=== PATIENT | female | born 1955 | race Two or more races ===

== ENCOUNTER 2017-12-20 10:51 | Inpatient (IN) | payer OTHER, MEDICAID ==
[~2017-12-20] VITALS: Ht 152.4 cm; Wt 56.7 kg
[2017-12-20 14:33] LABS: BASOPHIL % 0.5 % (0-2); PLATELET COUNT 223 x10^3mcL (130-400)
[2017-12-20 14:47] LABS: CALCIUM 9.1 mg/dL (8.5-10.1); CARBON DIOXIDE 36.7 mmol/L (21-32); CHLORIDE SERUM 104 mmol/L (98-107); CREATININE SERUM 0.3 mg/dL (0.6-1.0); GFR1 > 60 mL/min; GLUCOSE SERUM 111 mg/dL (74-106); POTASSIUM SERUM 3.8 mmol/L (3.5-5.1); SODIUM SERUM 145 mmol/L (136-145)
[2017-12-20 14:52] LABS: ALKALINE PHOSPHATASE 151 U/L (46-116); ALT/SGPT 35 U/L (14-59); BILIRUBIN TOTAL 0.3 mg/dL (0.20-1.00)
[2017-12-20 14:55] LABS: ALBUMIN 2.6 g/dL (3.4-5.0)
[2017-12-20 15:09] LABS: AST/SGOT 25 U/L (15-37)
[2017-12-20] MEDS ORDERED: CLONAZEPAM0.5 MG PO (15:45)
[2017-12-20] MEDS ORDERED: MONTELUKAST SOD10 M1 GT (15:46)
[2017-12-20] MEDS ORDERED: LEVOTHYROXIN0.125 M2 GT (15:48)
[2017-12-20] MEDS ORDERED: VITAMIN C500 MG/5 M GT (15:49)
[2017-12-20] MEDS ORDERED: NATURE'S BLEND F1 MG GT (15:50)
[2017-12-20] MEDS ORDERED: CENTRUM CHEWAB1 EACH GT (15:50)
[2017-12-20] MEDS ORDERED: FISH OIL OMEGA1 EACH GT (15:51)
[2017-12-20] MEDS ORDERED: OMEPRAZOLE40 M1 GT (15:51)
[2017-12-20] MEDS ORDERED: KLO0.5 GT (15:52)
[2017-12-20] MEDS ORDERED: CALCIUM CARB500 M1 GT (15:53)
[2017-12-20] MEDS ORDERED: VITAMIN D3500 UNIT/5 GT (15:55)
[2017-12-20] MEDS ORDERED: BUDESONIDE0.5 MG/2 M NEB (15:56)
[2017-12-20] MEDS ORDERED: LAMICTAL200 MG GT (15:57)
[2017-12-20] MEDS ORDERED: [UNRECOGNIZED DRUG - OTHER] GT (15:58)
[2017-12-20] MEDS ORDERED: SENNA8.8 MG/5 M GT (16:01)
[2017-12-20] MEDS ORDERED: [UNRECOGNIZED DRUG - OTHER] GT (16:02)
[2017-12-20] MEDS ORDERED: MIRALAX17 GM/Dose PO (16:03)
[2017-12-20] MEDS ORDERED: KEPPRA1000 M1 GT (16:03)
[2017-12-20] MEDS ORDERED: PROBIOTIC1 EAC1 GT (16:04)
[2017-12-20] MEDS ORDERED: LIPI10 GT (16:05)
[2017-12-20] MEDS ORDERED: ATIVAN2 MG/ML IJ (16:07)
[2017-12-20 18:21] VITALS: BP 115/74
[2017-12-20 19:27] LABS: microscopic required? YES; urine erythrocyte 2+ (NEGATIVE)
[2017-12-20 21:45] VITALS: BP 133/57
[2017-12-21 04:45] VITALS: BP 134/60
[2017-12-21 09:35] VITALS: BP 129/58
[2017-12-21 14:12] VITALS: BP 130/66
[2017-12-21 15:43] LABS: BASOPHIL % 0.4 % (0-2); PLATELET COUNT 170 x10^3mcL (130-400)
[2017-12-21 15:45] LABS: RED CELL DISTRIBUTION WIDTH 16.5 % (11.5-14.5)
[2017-12-21 15:51] LABS: CALCIUM 8.5 mg/dL (8.5-10.1); CARBON DIOXIDE 28.9 mmol/L (21-32); CHLORIDE SERUM 106 mmol/L (98-107); CREATININE SERUM 0.3 mg/dL (0.6-1.0); GFR1 > 60 mL/min; GLUCOSE SERUM 125 mg/dL (74-106); POTASSIUM SERUM 4.3 mmol/L (3.5-5.1); SODIUM SERUM 141 mmol/L (136-145)
[2017-12-21 17:52] VITALS: BP 137/51
[2017-12-21 21:07] VITALS: BP 132/60
[2017-12-22 05:01] VITALS: BP 138/66
[2017-12-22 07:20] LABS: BASOPHIL % 0.4 % (0-2); PLATELET COUNT 152 x10^3mcL (130-400)
[2017-12-22 07:21] LABS: CALCIUM 8.5 mg/dL (8.5-10.1); CHLORIDE SERUM 106 mmol/L (98-107); CREATININE SERUM 0.3 mg/dL (0.6-1.0); GFR1 > 60 mL/min; GLUCOSE SERUM 90 mg/dL (74-106); MAGNESIUM 1.5 mg/dL (1.8-2.4); PHOSPHOROUS 3.3 mg/dL (2.5-4.9); POTASSIUM SERUM 4.5 mmol/L (3.5-5.1); SODIUM SERUM 140 mmol/L (136-145)
[2017-12-22 07:25] LABS: RED CELL DISTRIBUTION WIDTH 16.7 % (11.5-14.5)
[2017-12-22 09:33] VITALS: BP 132/63
[2017-12-22 14:01] VITALS: BP 150/71
[2017-12-22 18:07] VITALS: BP 144/69
[2017-12-22 21:16] VITALS: BP 148/63
[2017-12-23 05:39] VITALS: BP 142/59
[2017-12-23 06:25] LABS: PLATELET COUNT 155 x10^3mcL (130-400)
[2017-12-23 06:35] LABS: CARBON DIOXIDE 25.8 mmol/L (21-32); CHLORIDE SERUM 105 mmol/L (98-107); CREATININE SERUM 0.3 mg/dL (0.6-1.0); GFR1 > 60 mL/min; GLUCOSE SERUM 103 mg/dL (74-106); MAGNESIUM 1.6 mg/dL (1.8-2.4); POTASSIUM SERUM 4.7 mmol/L (3.5-5.1); SODIUM SERUM 137 mmol/L (136-145)
[2017-12-23 07:01] LABS: RED CELL DISTRIBUTION WIDTH 16.2 % (11.5-14.5)
[2017-12-23 09:37] VITALS: BP 164/68
[2017-12-23 12:35] LABS: MONOCYTE 2 % (0-7); SEGMENTED NEUTROPHILS 78 % (37-75)
[2017-12-23 12:38] LABS: PLATELET MORPHOLOGY PLATELETS NORMAL
[2017-12-23 12:39] LABS: rbc morphology (normal/abnorm) NORMAL (NORMAL)
[2017-12-23 13:20] VITALS: Ht 152.4 cm; Wt 56.7 kg
[2017-12-23 14:00] VITALS: BP 131/57
[2017-12-23 17:18] VITALS: BP 138/63
[2017-12-23 21:12] VITALS: BP 138/51
[2017-12-24 06:09] VITALS: BP 129/57
[2017-12-24 06:55] LABS: CALCIUM 8.6 mg/dL (8.5-10.1); CARBON DIOXIDE 26.7 mmol/L (21-32); CHLORIDE SERUM 100 mmol/L (98-107); CREATININE SERUM 0.4 mg/dL (0.6-1.0); GFR1 > 60 mL/min; GLUCOSE SERUM 176 mg/dL (74-106); MAGNESIUM 1.5 mg/dL (1.8-2.4); PHOSPHOROUS 2.9 mg/dL (2.5-4.9); POTASSIUM SERUM 4.9 mmol/L (3.5-5.1); SODIUM SERUM 135 mmol/L (136-145)
[2017-12-24 07:56] LABS: RED CELL DISTRIBUTION WIDTH 16.3 % (11.5-14.5)
[2017-12-24 07:57] LABS: BASOPHIL % 0 % (0-2); PLATELET COUNT 120 x10^3mcL (130-400)
[2017-12-24 08:58] VITALS: BP 152/71
[2017-12-24 13:02] VITALS: BP 170/53
[2017-12-24 17:30] VITALS: BP 148/67
[2017-12-24 21:27] VITALS: BP 147/76
[2017-12-25 05:43] VITALS: BP 177/78
[2017-12-25 06:22] VITALS: BP 148/82
[2017-12-25 06:57] LABS: BASOPHIL % 0 % (0-2); PLATELET COUNT 93 x10^3mcL (130-400); RED CELL DISTRIBUTION WIDTH 15.3 % (11.5-14.5)
[2017-12-25 07:02] LABS: CALCIUM 8.7 mg/dL (8.5-10.1); CARBON DIOXIDE 30.2 mmol/L (21-32); CHLORIDE SERUM 97 mmol/L (98-107); CREATININE SERUM 0.3 mg/dL (0.6-1.0); GFR1 > 60 mL/min; GLUCOSE SERUM 129 mg/dL (74-106); POTASSIUM SERUM 4.8 mmol/L (3.5-5.1); SODIUM SERUM 132 mmol/L (136-145)
[2017-12-25 09:51] VITALS: BP 158/68
[2017-12-25 14:34] VITALS: BP 161/51
[2017-12-25 18:13] VITALS: BP 148/79
[2017-12-25 21:45] VITALS: BP 176/84
[2017-12-26 01:17] VITALS: BP 149/68
[2017-12-26 05:42] VITALS: BP 152/74
[2017-12-26 06:32] LABS: BASOPHIL % 0 % (0-2); PLATELET COUNT 122 x10^3mcL (130-400); RED CELL DISTRIBUTION WIDTH 15.1 % (11.5-14.5)
[2017-12-26 06:59] LABS: CALCIUM 9.7 mg/dL (8.5-10.1); CARBON DIOXIDE 28.7 mmol/L (21-32); CHLORIDE SERUM 95 mmol/L (98-107); CREATININE SERUM 0.4 mg/dL (0.6-1.0); GFR1 > 60 mL/min; GLUCOSE SERUM 122 mg/dL (74-106); MAGNESIUM 1.3 mg/dL (1.8-2.4); POTASSIUM SERUM 4.3 mmol/L (3.5-5.1); SODIUM SERUM 131 mmol/L (136-145)
[2017-12-26 09:38] VITALS: BP 153/67
[2017-12-26 13:59] VITALS: BP 161/70
[2017-12-26 17:51] VITALS: BP 143/60
[2017-12-26 20:50] VITALS: BP 137/74
[2017-12-27 05:37] VITALS: BP 120/52
[2017-12-27 06:39] LABS: BASOPHIL % 0.2 % (0-2); PLATELET COUNT 185 x10^3mcL (130-400)
[2017-12-27 06:44] LABS: CALCIUM 9.3 mg/dL (8.5-10.1); CARBON DIOXIDE 29.7 mmol/L (21-32); CHLORIDE SERUM 100 mmol/L (98-107); CREATININE SERUM 0.4 mg/dL (0.6-1.0); GFR1 > 60 mL/min; GLUCOSE SERUM 109 mg/dL (74-106); SODIUM SERUM 134 mmol/L (136-145)
[2017-12-27 06:45] LABS: RED CELL DISTRIBUTION WIDTH 15.1 % (11.5-14.5)
[2017-12-27 10:14] VITALS: BP 117/61
[2017-12-27 13:04] VITALS: BP 122/63
[2017-12-27 13:22] VITALS: BP 129/52
== END 2017-12-27 14:14 | DRG 177 ==
LOC: ED 10:51 → DU 13:40
PROVIDERS: Emergency Medicine; Family Medicine; Internal Medicine; Internal Medicine Gastroenterology
PROC: 0D2DXUZ Change Feeding Device in Lower Intestinal Tract, External Approach (ICD-10-PCS; principal; 2017-12-26 09:30)
PROC: 0DCA8ZZ Extirpation of Matter from Jejunum, Via Natural or Artificial Opening Endoscopic (ICD-10-PCS; 2017-12-26 09:30)
DX: J69.0 Pneumonitis due to inhalation of food and vomit (principal); R53.2 Functional quadriplegia; J96.01 Acute respiratory failure with hypoxia; E44.0 Moderate protein-calorie malnutrition; N39.0 Urinary tract infection, site not specified; K94.13 Enterostomy malfunction; B96.5 Pseudomonas (aeruginosa) (mallei) (pseudomallei) as the cause of diseases classified elsewhere; R06.89 Other abnormalities of breathing; K31.84 Gastroparesis; D64.9 Anemia, unspecified; Z16.24 Resistance to multiple antibiotics; Z86.718 Personal history of other venous thrombosis and embolism; Y84.8 Other medical procedures as the cause of abnormal reaction of the patient, or of later complication, without mention of misadventure at the time of the procedure; Y73.2 Prosthetic and other implants, materials and accessory gastroenterology and urology devices associated with adverse incidents; Y92.092 Bedroom in other non-institutional residence as the place of occurrence of the external cause
CPT/HCPCS: 36600; 43235; 43760; J0132; J0770; J1200; J1610; J1650; J2250; J2270; J2310; J2543; J2765; J2920; J3010; J3475; J3490; J7030; J7620; J7626; Q0092

== ENCOUNTER 2018-03-15 20:18 | Inpatient (IN) | payer OTHER, MEDICAID ==
[~2018-03-15] VITALS: Ht 152.4 cm; Wt 43.1 kg
[~2018-03-15 20:18] MED LIST: ATIVAN2 MG/ML IJ; BUDESONIDE0.5 MG/2 M NEB; CALCIUM CARB500 M1 GT; CENTRUM CHEWAB1 EACH GT; CLONAZEPAM0.5 MG PO; FISH OIL OMEGA1 EACH GT; KEPPRA1000 M1 GT; KLO0.5 GT; LAMICTAL200 MG GT; LEVOTHYROXIN0.125 M2 GT; LIPI10 GT; MIRALAX17 GM/Dose PO; MONTELUKAST SOD10 M1 GT; NATURE'S BLEND F1 MG GT; OMEPRAZOLE40 M1 GT; PROBIOTIC1 EAC1 GT; SENNA8.8 MG/5 M GT; VITAMIN C500 MG/5 M GT; VITAMIN D3500 UNIT/5 GT; [UNRECOGNIZED DRUG - OTHER] GT; [UNRECOGNIZED DRUG - OTHER] GT
[2018-03-15 20:21] VITALS: Ht 152.4 cm; Wt 43.1 kg
[2018-03-15 21:35] LABS: BASOPHIL % 1.1 % (0-2); PLATELET COUNT 349 x10^3mcL (130-400); RED CELL DISTRIBUTION WIDTH 15.4 % (11.5-14.5)
[2018-03-15 21:47] LABS: CALCIUM 9.3 mg/dL (8.5-10.1); CARBON DIOXIDE 27.8 mmol/L (21-32); CHLORIDE SERUM 99 mmol/L (98-107); CREATININE SERUM 0.5 mg/dL (0.6-1.0); GFR1 > 60 mL/min; GLUCOSE SERUM 112 mg/dL (74-106); POTASSIUM SERUM 3.9 mmol/L (3.5-5.1); SODIUM SERUM 136 mmol/L (136-145)
[2018-03-15 21:59] LABS: ALKALINE PHOSPHATASE 149 U/L (46-116); ALT/SGPT 18 U/L (14-59); AST/SGOT 16 U/L (15-37); BILIRUBIN TOTAL 0.2 mg/dL (0.20-1.00); HDL CHOLESTEROL 42 mg/dL (40-60); LIPASE 75 IU/L (73-393); T4(THYROXINE) 10.4 ug/dL (4.7-13.3)
[2018-03-15 22:00] LABS: ALBUMIN 3.1 g/dL (3.4-5.0); AMYLASE 22 U/L (25-115); CHOLESTEROL 110 mg/dL (<200); TOTAL PROTEIN, SERUM 8.3 g/dL (6.4-8.2)
[2018-03-15 22:42] LABS: microscopic required? YES; urine erythrocyte NEGATIVE (NEGATIVE)
[2018-03-15 22:54] LABS: T3 TOTAL 1.27 ng/mL
[2018-03-15 23:02] VITALS: BP 98/68
[2018-03-15 23:03] LABS: AMPHETAMINE QUAL UR NONE DETECTED (See below)
[2018-03-15] MEDS ORDERED: IPRATROPIUM BR2.5 ML NEB (23:05)
[2018-03-15] MEDS ORDERED: ASPIRIN CHILDRE81 MG GT (23:17)
[2018-03-15] MEDS ORDERED: ALDACTONE25 MG GT (23:17)
[2018-03-15] MEDS ORDERED: FUROSEMIDE20 MG GT (23:18)
[2018-03-15] MEDS ORDERED: CARVEDILOL3.125 M1 GT (23:19)
[2018-03-15 23:21] LABS: MAGNESIUM 1.9 mg/dL (1.8-2.4); PHOSPHOROUS 3.9 mg/dL (2.5-4.9)
[2018-03-15] MEDS ORDERED: GENTEAL TEARS 015 ML OP (23:22)
[2018-03-15] MEDS ORDERED: ENEMA133 ML (23:23)
[2018-03-15 23:25] LABS: CHOLESTEROL/HDL RATIO 2.6; FREE T4 1.4 ng/dL (0.76-1.46); FREE THYROXINE INDEX 4.1 ug/dL (1.4-4.5); T4(THYROXINE) 11.5 ug/dL (4.7-13.3)
[2018-03-15] MEDS ORDERED: APAP500 MG GT (23:26)
[2018-03-15] MEDS ORDERED: PROCHLORPERAZIN10 MG PR (23:27)
[2018-03-15] MEDS ORDERED: BIOTENE DRY MO473 ML (23:29)
[2018-03-15] MEDS ORDERED: ATROVENT H0.017 MG/1 NEB (23:29)
[2018-03-15] MEDS ORDERED: XOPENEX1.25 MG/3 NEB (23:30)
[2018-03-15] MEDS ORDERED: ADULT TUSS100 MG/5 M GT (23:32)
[2018-03-15] MEDS ORDERED: TYLENOL WITH CO1 TA2 GT (23:32)
[2018-03-15] MEDS ORDERED: BACITRACIN-NEO-1 OIN TOP (23:33)
[2018-03-15] MEDS ORDERED: BISACODYL1 GM PR (23:34)
[2018-03-15] MEDS ORDERED: LACTULOSE10 GM/152 GT (23:34)
[2018-03-16 06:48] VITALS: BP 147/54
[2018-03-16 06:55] LABS: PLATELET COUNT 341 x10^3mcL (130-400)
[2018-03-16 06:58] LABS: CARBON DIOXIDE 25.6 mmol/L (21-32); CHLORIDE SERUM 103 mmol/L (98-107); CREATININE SERUM 0.4 mg/dL (0.6-1.0); GFR1 > 60 mL/min; GLUCOSE SERUM 101 mg/dL (74-106); MAGNESIUM 1.8 mg/dL (1.8-2.4); PHOSPHOROUS 3.8 mg/dL (2.5-4.9); POTASSIUM SERUM 3.8 mmol/L (3.5-5.1); SODIUM SERUM 138 mmol/L (136-145)
[2018-03-16 07:01] LABS: RED CELL DISTRIBUTION WIDTH 15.3 % (11.5-14.5)
[2018-03-16 09:30] VITALS: BP 139/45
[2018-03-16 17:36] VITALS: BP 124/67
[2018-03-16 20:39] VITALS: BP 167/74
[2018-03-16 23:32] VITALS: BP 132/59
[2018-03-17 05:50] VITALS: BP 146/72
[2018-03-17 07:04] LABS: PLATELET COUNT 362 x10^3mcL (130-400)
[2018-03-17 07:12] LABS: CARBON DIOXIDE 22.4 mmol/L (21-32); CHLORIDE SERUM 104 mmol/L (98-107); CREATININE SERUM 0.5 mg/dL (0.6-1.0); GFR1 > 60 mL/min; GLUCOSE SERUM 113 mg/dL (74-106); POTASSIUM SERUM 3.7 mmol/L (3.5-5.1); SODIUM SERUM 137 mmol/L (136-145)
[2018-03-17 08:30] VITALS: BP 112/52
[2018-03-17 11:05] VITALS: BP 126/68
[2018-03-17 17:49] VITALS: BP 100/42
[2018-03-17 21:25] VITALS: BP 150/73
[2018-03-18 06:10] VITALS: BP 140/58
[2018-03-18 09:28] VITALS: BP 112/48
[2018-03-18 17:52] VITALS: BP 136/46
[2018-03-18 20:42] VITALS: BP 140/58
[2018-03-19 05:30] VITALS: BP 139/64
[2018-03-19 06:10] LABS: BASOPHIL % 0.9 % (0-2); PLATELET COUNT 306 x10^3mcL (130-400)
[2018-03-19 06:23] LABS: CALCIUM 8.3 mg/dL (8.5-10.1); CARBON DIOXIDE 25.3 mmol/L (21-32); CHLORIDE SERUM 103 mmol/L (98-107); CREATININE SERUM 0.5 mg/dL (0.6-1.0); GFR1 > 60 mL/min; GLUCOSE SERUM 102 mg/dL (74-106); POTASSIUM SERUM 3.9 mmol/L (3.5-5.1); SODIUM SERUM 137 mmol/L (136-145)
[2018-03-19 09:04] VITALS: BP 143/62
[2018-03-19 13:12] VITALS: BP 143/62
== END 2018-03-19 15:05 | DRG 393 ==
LOC: ED 20:18 → MU 21:13
PROVIDERS: Emergency Medicine; Family Medicine; Internal Medicine; Internal Medicine Gastroenterology
PROC: 0D20XUZ Change Feeding Device in Upper Intestinal Tract, External Approach (ICD-10-PCS; principal; 2018-03-18 07:30)
PROC: 0D758ZZ Dilation of Esophagus, Via Natural or Artificial Opening Endoscopic (ICD-10-PCS; 2018-03-18 07:30)
DX: K94.23 Gastrostomy malfunction (principal); N17.0 Acute kidney failure with tubular necrosis; N39.0 Urinary tract infection, site not specified; E44.1 Mild protein-calorie malnutrition; K29.60 Other gastritis without bleeding; K22.2 Esophageal obstruction; G80.8 Other cerebral palsy; E03.9 Hypothyroidism, unspecified; G40.909 Epilepsy, unspecified, not intractable, without status epilepticus; D64.9 Anemia, unspecified; F79 Unspecified intellectual disabilities; I25.2 Old myocardial infarction; Z99.3 Dependence on wheelchair; Z68.25 Body mass index [BMI] 25.0-25.9, adult; Y83.3 Surgical operation with formation of external stoma as the cause of abnormal reaction of the patient, or of later complication, without mention of misadventure at the time of the procedure; Y73.2 Prosthetic and other implants, materials and accessory gastroenterology and urology devices associated with adverse incidents; Y92.099 Unspecified place in other non-institutional residence as the place of occurrence of the external cause
CPT/HCPCS: 43235; 84439; C1769; J0696; J1200; J1610; J2250; J2310; J2765; J3010; J3490; J7030; Q0092; Q9967

== ENCOUNTER 2018-08-30 07:55 | Inpatient (IN) | payer OTHER, MEDICAID | END 2018-09-02 13:43 | LOC: ED 07:55 → MU 10:18 → ED 07:55 → MU 10:18 → ED 07:55 → MU 10:18 → ED 07:55 → MU 10:18 → ED 07:55 → MU 10:18 → ED 07:55 → MU 10:18 → ED 07:55 → MU 10:18 | DX: K94.23 Gastrostomy malfunction (principal); J18.9 Pneumonia, unspecified organism; G82.50 Quadriplegia, unspecified; Y83.8 Other surgical procedures as the cause of abnormal reaction of the patient, or of later complication, without mention of misadventure at the time of the procedure; D63.8 Anemia in other chronic diseases classified elsewhere ==